=== PATIENT | male | born 1965 | race Two or more races ===

== ENCOUNTER 2022-05-05 15:47 | Emergency (ER) | payer OTHER ==
[~2022-05-05] VITALS: Ht 175.3 cm; Wt 68.0 kg
[2022-05-05 15:49] VITALS: BP 150/90
[2022-05-05] MEDS ORDERED: ASPIRIN 325MG EC TABLET PO ONE (16:30)
[2022-05-05 16:41] LABS: BASOPHILS % 0.4 % (0.0-2.0); EOSINOPHILS % 5.4 % (0.0-5.0); HEMOGLOBIN. 14.4 g/dL (14.0-18.0); LYMPHOCYTES % 22.5 % (20.0-50.0); MEAN CORPUSCULAR HEMOGLOBIN 29.3 pg (28.0-32.0); MEAN CORPUSCULAR VOLUME 85.4 fL (80.0-94.0); MEAN PLATELET VOLUME 7.5 fl (7.4-10.4); MONOCYTES % 7.9 % (2.0-8.0); NEUTROPHILS % 63.8 % (40.0-76.0); PLATELET 189 x1000/uL (130-400); RED BLOOD CELL COUNT 4.92 mill/uL (4.7-6.1); RED CELL DISTRIBUTION WIDTH 13.4 % (11.6-14.6)
[2022-05-05 16:50] LABS: PROTHROMBIN TIME 10.7 sec (9.6-11.0)
[2022-05-05 16:55] LABS: CHLORIDE 99 mEq/L (98-107)
[2022-05-05] MEDS ORDERED: ALBU6.7H3 INH (21:11)
[2022-05-05] MEDS ORDERED: P20 MT (21:11)
[2022-05-05] MEDS ORDERED: ALBUTEROL (0.5%) 2.5MG/0.5ML NEB HHN ONE (21:15)
[2022-05-05] MEDS ORDERED: PREDNISONE 20MG TABLET PO ONE (21:15)
== END 2022-05-05 22:00 ==
LOC: ER 15:47
DX: J20.9 Acute bronchitis, unspecified (principal); R10.11 Right upper quadrant pain; I10 Essential (primary) hypertension; I49.3 Ventricular premature depolarization; Z86.16 Personal history of COVID-19; Z28.310 Unvaccinated for COVID-19; I25.2 Old myocardial infarction
CPT/HCPCS: 36415; 71045; 80053; 83690; 83880; 84484; 85025; 85610; 93005; 94640; 99285; J7512; Z7610

== ENCOUNTER 2024-11-22 18:03 | Inpatient (IN) | payer MEDICAID, OTHER ==
[~2024-11-22] VITALS: Ht 172.7 cm; Wt 64.4 kg
[~2024-11-22 18:03] MED LIST: ALBU6.7H3 INH; P20 MT
[2024-11-22] MEDS ORDERED: IPRATROPIUM BROMIDE (0.02%) 0.5MG/2.5ML NEB HHN SCH (18:30)
[2024-11-22] MEDS ORDERED: METHYLPREDNISOLONE SOD SUCC 125MG/2ML (ACT-O-VIAL) IV ONE (18:30)
[2024-11-22] MEDS ORDERED: ALBUTEROL (0.083%) 2.5MG/3ML NEB HHN SCH (18:30)
[2024-11-22 18:59] LABS: BASOPHILS % 0.7 % (0.0-2.0); EOSINOPHILS % 9.8 % (0.0-5.0); HEMATOCRIT. 38.0 % (42.0-52.0); HEMOGLOBIN. 12.8 g/dL (14.0-18.0); LYMPHOCYTES % 25.3 % (20.0-50.0); MEAN PLATELET VOLUME 8.0 fl (7.4-10.4); MONOCYTES % 5.7 % (2.0-8.0); NEUTROPHILS % 58.5 % (40.0-76.0); PLATELET 195 x1000/uL (130-400); RED BLOOD CELL COUNT 4.40 mill/uL (4.7-6.1); RED CELL DISTRIBUTION WIDTH 13.8 % (11.6-14.6)
[2024-11-22 19:13] LABS: CREATININE 0.9 mg/dL (0.6-1.3); UREA NITROGEN BLOOD 27 mg/dL (9-23)
[2024-11-22 19:15] LABS: ASPARTATE AMINOTRANSFERASE 38 IU/L (<34); BILIRUBIN DIRECT 0.2 mg/dL (<=3.0); BILIRUBIN TOTAL 0.5 mg/dL (0.1-1.0); PROTEIN TOTAL 7.4 g/dL (6.0-8.3)
[2024-11-22 19:18] LABS: TROPONIN I HIGH SENSITIVITY 60 ng/L (3.0-53)
[2024-11-22 19:22] LABS: INR 1.0
[2024-11-22] MEDS: METHYLPREDNISOLONE SOD SUCC 125MG/2ML (ACT-O-VIAL) IV SCH (20:37)
[2024-11-22] MEDS ORDERED: GUAIFENESIN 200MG/10ML SUGAR FREE UDC PO PRN (20:45)
[2024-11-22] MEDS ORDERED: ONDANSETRON HCL 4MG/2ML INJ IV PRN (20:45)
[2024-11-22] MEDS ORDERED: AZITHROMYCIN 500MG/250ML 250 ML IV ONE (20:45)
[2024-11-22] MEDS ORDERED: SODIUM CHLORIDE 0.9% (SEPSIS BOLUS) IV ONE (20:45)
[2024-11-22] MEDS ORDERED: ACETAMINOPHEN 325MG TABLET PO PRN (20:45)
[2024-11-22] MEDS ORDERED: IPRATROPIUM/ALBUTEROL 0.5-3(2.5)MG/3ML NEB HHN PRN (20:45)
[2024-11-22] MEDS ORDERED: CEFTRIAXONE 1GM/50ML 50 ML IV ONE (20:45)
[2024-11-22] MEDS ORDERED: CLONIDINE 0.1MG TABLET PO PRN (20:45)
[2024-11-22 21:42] LABS: FOLIC ACID (FOLATE) SERUM 14.60 ng/mL (>5.38); TROPONIN I HIGH SENSITIVITY 76 ng/L (3.0-53); VITAMIN B12 SERUM 669 pg/mL (211-911)
[2024-11-22 21:45] VITALS: BP 139/79; PULSE 53; RESP 18; TEMP 36.8; O2SAT 98
[2024-11-22] MEDS: FAMOTIDINE 20MG TABLET PO SCH (21:46)
[2024-11-22] MEDS ORDERED: IOHEXOL-350 100 ML BOTTLE ONE (21:55)
[2024-11-22 22:02] VITALS: BP 139/79; PULSE 53; RESP 18; TEMP 36.8072
[2024-11-22] MEDS ORDERED: SERT50TA PO (22:28)
[2024-11-22] MEDS ORDERED: LISI-648 PO (22:28)
[2024-11-23] VITALS (8 sets, daily range): BP systolic 118–153; BP diastolic 71–88; PULSE 49–89; RESP 16–20; TEMP 36.2–37; O2SAT 95–97
[2024-11-23] MEDS: IPRATROPIUM/ALBUTEROL 0.5-3(2.5)MG/3ML NEB HHN SCH (01:11)
[2024-11-23 01:34] LABS: CLARITY URINE CLEAR (CLEAR); COLOR URINE YELLOW (YELLOW); GLUCOSE URINE 2+ (NEGATIVE); KETONES URINE NEGATIVE (NEGATIVE); LEUKOCYTE ESTERASE URINE NEGATIVE (NEGATIVE); NITRITE URINE NEGATIVE (NEGATIVE); OCCULT BLOOD URINE NEGATIVE (NEGATIVE); PH URINE 7.0 (4.5-8.0); PROTEIN URINE NEGATIVE (NEGATIVE); SPECIFIC GRAVITY URINE 1.046 (1.005-1.030); UROBILINOGEN URINE 1.0 E.U./dL (0.2-1.0)
[2024-11-23 01:46] LABS: *AMPHETAMINES SCREEN URINE PRESUMPTIVE POSITIVE (NEGATIVE); *BARBITURATES SCREEN URINE NEGATIVE (NEGATIVE); *BENZODIAZEPINES SCREEN URINE NEGATIVE (NEGATIVE); *COCAINE SCREEN URINE NEGATIVE (NEGATIVE); CANNABINOID URINE SCREEN PRESUMPTIVE POSITIVE (NEGATIVE); METHADONE URINE SCREEN NEGATIVE (NEGATIVE); OPIATES URINE SCREEN NEGATIVE (NEGATIVE); PHENCYCLIDINE URINE SCREEN NEGATIVE (NEGATIVE)
[2024-11-23 01:47] LABS: ECSTASY MDMA SCREEN URINE NEGATIVE (NEGATIVE)
[2024-11-23 02:11] LABS: RBC URINE NONE SEEN /hpf (0-2); SQUAMOUS EPITHELIAL CELL URINE NONE SEEN /lpf (RARE/1+); WBC URINE 0-2 /hpf (0-2)
[2024-11-23 02:12] LABS: BACTERIA URINE NONE SEEN
[2024-11-23 07:44] LABS: BASOPHILS % 0.1 % (0.0-2.0); EOSINOPHILS % 0.1 % (0.0-5.0); HEMATOCRIT. 36.9 % (42.0-52.0); HEMOGLOBIN. 12.4 g/dL (14.0-18.0); LYMPHOCYTES % 15.5 % (20.0-50.0); MEAN PLATELET VOLUME 8.4 fl (7.4-10.4); MONOCYTES % 0.9 % (2.0-8.0); NEUTROPHILS % 83.4 % (40.0-76.0); PLATELET 179 x1000/uL (130-400); RED BLOOD CELL COUNT 4.28 mill/uL (4.7-6.1); RED CELL DISTRIBUTION WIDTH 13.8 % (11.6-14.6)
[2024-11-23 08:05] LABS: CREATINE KINASE MB FRACTION 3.5 ng/mL (0.5-3.6)
[2024-11-23 08:09] LABS: CREATININE 0.9 mg/dL (0.6-1.3); T4 FREE 1.11 ng/dL (0.89-1.76); TRIGLYCERIDE 21 mg/dL (0-150); UREA NITROGEN BLOOD 24 mg/dL (9-23)
[2024-11-23 08:10] LABS: LDL CHOLESTEROL 86 mg/dL (5-100)
[2024-11-23] MEDS ORDERED: METOPROLOL TARTRATE 5MG/5ML VIAL IV PRN (08:30)
[2024-11-23] MEDS: LISINOPRIL 5MG TABLET PO SCH (09:25)
[2024-11-23] MEDS: ASPIRIN 81MG TABLET PO SCH (09:25)
[2024-11-23] MEDS: PREDNISONE 20MG TABLET PO SCH (09:28)
[2024-11-23] MEDS: SERTRALINE HCL 25MG TABLET PO SCH (09:28)
[2024-11-23 09:30] LABS: TROPONIN I HIGH SENSITIVITY 57.0 ng/L (3.0-53)
[2024-11-23 11:34] LABS: BASOPHILS % 0.1 % (0.0-2.0); EOSINOPHILS % 0.0 % (0.0-5.0); HEMATOCRIT. 36.2 % (42.0-52.0); HEMOGLOBIN. 12.2 g/dL (14.0-18.0); LYMPHOCYTES % 9.5 % (20.0-50.0); MEAN PLATELET VOLUME 8.2 fl (7.4-10.4); MONOCYTES % 1.1 % (2.0-8.0); NEUTROPHILS % 89.3 % (40.0-76.0); PLATELET 198 x1000/uL (130-400); RED BLOOD CELL COUNT 4.22 mill/uL (4.7-6.1); RED CELL DISTRIBUTION WIDTH 13.8 % (11.6-14.6)
[2024-11-23] MEDS: ACETAMINOPHEN 325MG TABLET PO PRN (20:25)
[2024-11-24] VITALS: BP 115/74; PULSE 51; RESP 18; TEMP 36.3; O2SAT 99
[2024-11-24 04:00] VITALS: BP 120/63; PULSE 51; RESP 20; TEMP 36.6; O2SAT 96
[2024-11-24 07:46] VITALS: BP 154/85; PULSE 53; RESP 18; TEMP 36.4; O2SAT 97
[2024-11-24 10:12] VITALS: BP 142/69; PULSE 58; RESP 18; TEMP 98
[2024-11-24 12:00] VITALS: BP 128/71; PULSE 58; RESP 18; TEMP 36.6; O2SAT 98
== END 2024-11-24 14:53 | disposition home or self-care (01) | DRG 190 ==
LOC: ER 18:03 → 8WST 19:54 → EDBEDREQTM 20:13 → EDBEDREQ 20:13 → ENRESERV 20:28
PROVIDERS: ADMIT Internal Medicine; ATTEND Internal Medicine
DX: I21.4 Non-ST elevation (NSTEMI) myocardial infarction (principal); D72.10 Eosinophilia, unspecified; J45.901 Unspecified asthma with (acute) exacerbation; D64.9 Anemia, unspecified; F12.90 Cannabis use, unspecified, uncomplicated; F17.210 Nicotine dependence, cigarettes, uncomplicated; R00.1 Bradycardia, unspecified; I10 Essential (primary) hypertension; F43.10 Post-traumatic stress disorder, unspecified; F32.9 Major depressive disorder, single episode, unspecified; F41.9 Anxiety disorder, unspecified; F15.10 Other stimulant abuse, uncomplicated; Z79.899 Other long term (current) drug therapy
CPT/HCPCS: 36415; 71045; 71275; 80048; 80061; 80076; 80305; 81003; 82550; 82553; 82607; 82728; 82746; 83036; 83540; 83550; 83605; 83880; 84145; 84439; 84443; 84481; 84484; 85025; 85379; 93005; 94070; 94640; 94664; 98960; 99285; J2919; J7030; J7512; Q9967